=== PATIENT | female | born 1990 | race Caucasian/White ===

== ENCOUNTER 2016-08-24 12:42 | Emergency (ER) | payer OTHER ==
[2016-08-24 12:52] VITALS: BP 119/73; PULSE 66; RESP 17; TEMP 97.7
--- NOTE | 2016-08-24 13:25 | ED ---
Lower Extremity Injury HPI - General Source: patient, RN notes reviewed Mode of arrival: wheelchair Limitations: no limitations <Lali Ortiz - Last Filed: 08/24/16 13:23> <Kumar Faustin - Last Filed: 08/24/16 14:37> - General Chief Complaint: Extremity Injury, Lower Stated Complaint: lt knee/foot injury Time Seen by Provider: 08/24/16 13:08 - History of Present Illness Initial Comments: Patient is a 25-year-old female presents to the emergency room for evaluation of left knee and ankle pain. Patient states that she fell yesterday landing on her left knee and ankle. Patient states been having increasing pain today. Patient states took Tylenol last night and has been applying ice with no relief of pain. Patient states pain has been worse whenever she tries to put weight on her left leg. Patient states she still able to flex and extend her knee and flex and extend her ankle. Patient denies any numbness or tingling in her toes. Patient denies any other injuries during incident. (Lali Ortiz) - Related Data Home Medications Medication Instructions Recorded Confirmed Acetaminophen Tab [Tylenol Tab] 1,000 mg PO Q6HR PRN 08/24/16 08/24/16 DULoxetine HCL [Cymbalta] 30 mg PO DAILY 08/24/16 08/24/16 Naproxen 500 mg PO Q12H PRN 08/24/16 08/24/16 tiZANidine HCL [Zanaflex] 4 mg PO DAILY PRN 08/24/16 08/24/16 Allergies Allergy/AdvReac Type Severity Reaction Status Date / Time No Known Allergies Allergy Verified 08/24/16 13:32 Review of Systems ROS Other: All systems not noted in ROS Statement are negative. <Lali Ortiz - Last Filed: 08/24/16 13:23> ROS Other: All systems not noted in ROS Statement are negative. <Kumar Faustin - Last Filed: 08/24/16 14:37> ROS Statement: Those systems with pertinent positive or pertinent negative responses have been documented in the HPI. Past Medical History Past Medical History: No Reported History History of Any Multi-Drug Resistant Organisms: None Reported Past Surgical History: Section Additional Past Surgical History / Comment(s): ORAL Past Psychological History: Bipolar, Depression Smoking Status: Light tobacco smoker Past Alcohol Use History: None Reported Past Drug Use History: None Reported <Lali Ortiz - Last Filed: 08/24/16 13:23> General Exam Limitations: no limitations General appearance: alert, in no apparent distress Head exam: Present: atraumatic, normocephalic, normal inspection Eye exam: Present: normal appearance ENT exam: Present: normal exam Neck exam: Present: normal inspection Respiratory exam: Absent: respiratory distress Left Knee exam: Present: full ROM, tenderness (Anterior patella), ecchymosis ( Anterior patella) Ankle exam: Present: normal inspection, full ROM, tenderness (Medial malleolus) Foot/Toe exam: Present: normal inspection Neurovascular tendon exam: Present: no vascular compromise. Absent: pulse deficit (2+ dorsal pedal pulses the pulses), abnormal cap refill (Capillary refill less than 2 seconds) Back exam: Present: normal inspection Neurological exam: Present: alert, oriented X3, CN II-XII intact Psychiatric exam: Present: normal affect, normal mood Skin exam: Present: warm, dry, intact, normal color. Absent: rash <Lali Ortiz - Last Filed: 08/24/16 13:23> <Kumar Faustin - Last Filed: 08/24/16 14:37> - General Exam Comments Initial Comments: Sitting in exam room in no acute distress. (Lali Ortiz) Medical Decision Making <Lali Ortiz - Last Filed: 08/24/16 13:23> <Kumar Faustin - Last Filed: 08/24/16 14:37> - Medical Decision Making X-rays of the knee and ankle are negative for any acute fracture. Patient will be placed in a knee immobilizer and have an Jonathan wrap placed on her ankle. (Kumar Faustin) Disposition <Lali Ortiz - Last Filed: 08/24/16 13:23> Time of Disposition: 14:37 <Kumar Faustin - Last Filed: 08/24/16 14:37> Clinical Impression: Knee strain, Ankle sprain Disposition: HOME SELF-CARE Condition: Good Instructions: Ankle Sprain (ED), Knee Sprain (ED) Referrals: Pineda Callahan MD [Primary Care Provider] - 1-2 days
--- NOTE | 2016-08-24 13:54 | XR ---
EXAMINATION TYPE: XR knee complete LT DATE OF EXAM: 08/24/2016 1:49 PM CLINICAL HISTORY: Slip and fall injury with pain. TECHNIQUE: Three views of the left knee are obtained. COMPARISON: None. FINDINGS: There is no acute fracture/dislocation evident in left knee. The tri-compartment joint sp aces appear within normal limits. The overlying soft tissue appears unremarkable. IMPRESSION: There is no acute fracture or dislocation in the left knee.
--- NOTE | 2016-08-24 13:55 | XR ---
EXAMINATION TYPE: XR ankle complete LT DATE OF EXAM: 08/24/2016 1:49 PM CLINICAL HISTORY: Slip and fall injury with lateral side pain. TECHNIQUE: Frontal, lateral and oblique images of the left ankle are obtained. COMPARISON: None. FINDINGS: There is no acute fracture/dislocation evident in the left ankle. The ankle mortise appea rs within normal limits. The overlying soft tissue appears unremarkable. IMPRESSION: There is no acute fracture or dislocation in the left ankle.
== END 2016-08-24 14:46 | disposition home or self-care (01) ==
LOC: EC 12:42
DX: S83.92XA Sprain of unspecified site of left knee, initial encounter (principal); S93.402A Sprain of unspecified ligament of left ankle, initial encounter; W19.XXXA Unspecified fall, initial encounter; Z79.899 Other long term (current) drug therapy; F32.9 Major depressive disorder, single episode, unspecified; F17.200 Nicotine dependence, unspecified, uncomplicated
CPT/HCPCS: 73562; 73610; 99283; L1830

== ENCOUNTER 2016-10-05 13:00 | Emergency (ER) | payer OTHER ==
--- NOTE | 2016-10-05 13:35 | ED ---
General Adult HPI - General Chief complaint: Abdominal Pain Stated complaint: abdominal pain Time Seen by Provider: 10/05/16 13:24 Source: patient, RN notes reviewed, old records reviewed Mode of arrival: ambulatory Limitations: no limitations - History of Present Illness Initial comments: This is a 26-year-old female VF reversion of right flank pain, patient has no history of similar symptoms. Patient does have history of positive , . Patient having no abdominal pain. No nausea vomiting or diarrhea. No recent fevers. No dysuria the patient is noted. Patient's continuing to have left-sided flank pain rating to and around the neck. No diarrhea no nausea vomiting no fevers. - Related Data Home Medications Medication Instructions Recorded Confirmed DULoxetine HCL [Cymbalta] 30 mg PO DAILY 08/24/16 10/05/16 tiZANidine HCL [Zanaflex] 4 mg PO DAILY PRN 08/24/16 10/05/16 Naproxen [Naprosyn] 500 mg PO DAILY PRN 10/05/16 10/05/16 Allergies Allergy/AdvReac Type Severity Reaction Status Date / Time No Known Allergies Allergy Verified 10/05/16 13:44 Review of Systems ROS Statement: Those systems with pertinent positive or pertinent negative responses have been documented in the HPI. ROS Other: All systems not noted in ROS Statement are negative. Past Medical History Past Medical History: No Reported History History of Any Multi-Drug Resistant Organisms: None Reported Past Surgical History: Section Additional Past Surgical History / Comment(s): ORAL Past Psychological History: Anxiety, Bipolar, Depression Smoking Status: Former smoker Past Alcohol Use History: None Reported Past Drug Use History: None Reported General Exam Limitations: no limitations General appearance: alert, in no apparent distress Head exam: Present: atraumatic, normocephalic, normal inspection Eye exam: Present: normal appearance, PERRL, EOMI. Absent: scleral icterus, conjunctival injection, periorbital swelling ENT exam: Present: normal exam, mucous membranes moist Neck exam: Present: normal inspection. Absent: tenderness, meningismus, lymphadenopathy Respiratory exam: Present: normal lung sounds bilaterally. Absent: respiratory distress, wheezes, rales, rhonchi, stridor Cardiovascular Exam: Present: regular rate, normal rhythm, normal heart sounds. Absent: systolic murmur, diastolic murmur, rubs, gallop, clicks GI/Abdominal exam: Present: soft, normal bowel sounds. Absent: distended, tenderness, guarding, rebound, rigid Extremities exam: Present: normal inspection, full ROM, normal capillary refill. Absent: tenderness, pedal edema, joint swelling, calf tenderness Back exam: Present: normal inspection Neurological exam: Present: alert, oriented X3, CN II-XII intact Psychiatric exam: Present: normal affect, normal mood Skin exam: Present: warm, dry, intact, normal color. Absent: rash Course Vital Signs 10/05/16 13:12 Temperature 98.8 F Pulse Rate 94 Respiratory 20 Rate Blood Pressure 123/72 O2 Sat by Pulse 98 Oximetry - Reevaluation(s) Reevaluation #1: 10/05/16 15:38 Pain is remarkable resolved Medical Decision Making - Medical Decision Making 26-year-old year with nonspecific abdominal pain, lab work and CT is negative, urine is negative patient will be discharged home - Lab Data Result diagrams: 10/05/16 15:07 10/05/16 15:07 Lab Results 10/05/16 10/05/16 10/05/16 Range/Units 13:41 13:41 15:07 WBC (3.8-10.6) k/uL RBC (3.80-5.40) m/uL Hgb (11.4-16.0) gm/dL Hct (34.0-46.0) % MCV (80.0-100.0) fL MCH (25.0-35.0) pg MCHC (31.0-37.0) g/dL RDW (11.5-15.5) % Plt Count (150-450) k/uL Neutrophils % % Lymphocytes % % Monocytes % % Eosinophils % % Basophils % % Neutrophils # (1.3-7.7) k/uL Lymphocytes # (1.0-4.8) k/uL Monocytes # (0-1.0) k/uL Eosinophils # (0-0.7) k/uL Basophils # (0-0.2) k/uL Sodium 143 (137-145) mmol/L Potassium 3.8 (3.5-5.1) mmol/L Chloride 106 (98-107) mmol/L Carbon Dioxide 26 (22-30) mmol/L Anion Gap 11 mmol/L BUN 6 L (7-17) mg/dL Creatinine 0.66 (0.52-1.04) mg/dL Est GFR (MDRD) Af Amer >60 (>60 ml/min/1.73 sqM) Est GFR (MDRD) Non-Af >60 (>60 ml/min/1.73 sqM) Glucose 90 (74-99) mg/dL Calcium 9.6 (8.4-10.2) mg/dL Total Bilirubin 0.5 (0.2-1.3) mg/dL AST 16 (14-36) U/L ALT 22 (9-52) U/L Alkaline Phosphatase 87 (38-126) U/L Total Protein 7.3 (6.3-8.2) g/dL Albumin 4.1 (3.5-5.0) g/dL Amylase 39 (30-110) U/L Lipase 29 (23-300) U/L Urine Color Light Yellow Urine Appearance Clear (Clear) Urine pH 7.0 (5.0-8.0) Ur Specific Sentinel 1.012 (1.001-1.035) Urine Protein Negative (Negative) Urine Glucose (UA) Negative (Negative) Urine Ketones Negative (Negative) Urine Blood Negative (Negative) Urine Nitrite Negative (Negative) Urine Bilirubin Negative (Negative) Urine Urobilinogen <2.0 (<2.0) mg/dL Ur Leukocyte Esterase Negative (Negative) Urine HCG, Qual Not Detected (Not Detectd) 10/05/16 Range/Units 15:07 WBC 7.8 (3.8-10.6) k/uL RBC 4.80 (3.80-5.40) m/uL Hgb 12.0 (11.4-16.0) gm/dL Hct 38.0 (34.0-46.0) % MCV 79.1 L (80.0-100.0) fL MCH 24.9 L (25.0-35.0) pg MCHC 31.5 (31.0-37.0) g/dL RDW 14.1 (11.5-15.5) % Plt Count 275 (150-450) k/uL Neutrophils % 70 % Lymphocytes % 21 % Monocytes % 5 % Eosinophils % 1 % Basophils % 0 % Neutrophils # 5.5 (1.3-7.7) k/uL Lymphocytes # 1.7 (1.0-4.8) k/uL Monocytes # 0.4 (0-1.0) k/uL Eosinophils # 0.1 (0-0.7) k/uL Basophils # 0.0 (0-0.2) k/uL Sodium (137-145) mmol/L Potassium (3.5-5.1) mmol/L Chloride (98-107) mmol/L Carbon Dioxide (22-30) mmol/L Anion Gap mmol/L BUN (7-17) mg/dL Creatinine (0.52-1.04) mg/dL Est GFR (MDRD) Af Amer (>60 ml/min/1.73 sqM) Est GFR (MDRD) Non-Af (>60 ml/min/1.73 sqM) Glucose (74-99) mg/dL Calcium (8.4-10.2) mg/dL Total Bilirubin (0.2-1.3) mg/dL AST (14-36) U/L ALT (9-52) U/L Alkaline Phosphatase (38-126) U/L Total Protein (6.3-8.2) g/dL Albumin (3.5-5.0) g/dL Amylase (30-110) U/L Lipase (23-300) U/L Urine Color Urine Appearance (Clear) Urine pH (5.0-8.0) Ur Specific Sentinel (1.001-1.035) Urine Protein (Negative) Urine Glucose (UA) (Negative) Urine Ketones (Negative) Urine Blood (Negative) Urine Nitrite (Negative) Urine Bilirubin (Negative) Urine Urobilinogen (<2.0) mg/dL Ur Leukocyte Esterase (Negative) Urine HCG, Qual (Not Detectd) - Radiology Data Radiology results: report reviewed (CT of abdominal and pelvis is negative for acute disease), image reviewed Disposition Clinical Impression: Abdominal pain, Left flank pain Disposition: HOME SELF-CARE Condition: Good Instructions: Abdominal Pain (ED), Flank Pain (ED) Referrals: Pineda Callahan MD [Primary Care Provider] - 1-2 days
[2016-10-05 14:03] LABS: Appearance,Urine Clear (Clear); Bilirubin,Urine Negative (Negative); Glucose,Urine (UA) Negative (Negative); Ketones,Urine Negative (Negative); Leukocyte Esterase,Urine Negative (Negative); Nitrite,Urine Negative (Negative); Protein,Urine Negative (Negative); Specific Gravity,Urine 1.012 (1.001-1.035); UA Billing (MACRO vs. MICRO) CHEM; Urobilinogen,Urine <2.0 mg/dL (<2.0)
[2016-10-05] MEDS ORDERED: RX INFO: IV CONTRAST WAS GIVEN 1 EACH MISC MISCELLANE PRN (14:33)
[2016-10-05] MEDS ORDERED: MORPHINE SULFATE 4 MG/ML SYRINGE IV STA (14:33)
[2016-10-05] MEDS ORDERED: ONDANSETRON 4 MG/2 ML VIAL IVP STA (14:33)
[2016-10-05] MEDS ORDERED: SODIUM CHLORIDE 0.9% 1,000 ML IV STA (14:33)
[2016-10-05] MEDS ORDERED: PANTOPRAZOLE 40 MG/10 ML VIAL IVP STA (14:33)
[2016-10-05 15:25] LABS: ALT 22 U/L (9-52); AST 16 U/L (14-36); Alkaline Phosphatase 87 U/L (38-126); Amylase 39 U/L (30-110); Anion Gap 11 mmol/L; Basophils % (A) 0 %; Blood Urea Nitrogen 6 mg/dL (7-17); CH 24.9; CHCM 31.6; Calcium 9.6 mg/dL (8.4-10.2); Carbon Dioxide 26 mmol/L (22-30); Chloride 106 mmol/L (98-107); Eosinophils # (A) 0.1 k/uL (0-0.7); Eosinophils % (A) 1 %; Glucose 90 mg/dL (74-99); HDW 2.42; Luc # (Auto) 0.18; Luc % (Auto) 2; Lymphocytes # (A) 1.7 k/uL (1.0-4.8); Lymphocytes % (A) 21 %; MCH 24.9 pg (25.0-35.0); MCHC 31.5 g/dL (31.0-37.0); MCV 79.1 fL (80.0-100.0); Mean Platelet Volume 7.2; Monocytes # (A) 0.4 k/uL (0-1.0); Monocytes % (A) 5 %; Neutrophils # (A) 5.5 k/uL (1.3-7.7); Neutrophils % (A) 70 %; Non-African American GFR(MDRD) >60 (>60 ml/min/1.73 sqM); Potassium 3.8 mmol/L (3.5-5.1); RDW 14.1 % (11.5-15.5); Sodium 143 mmol/L (137-145); Total Bilirubin 0.5 mg/dL (0.2-1.3); Total Protein 7.3 g/dL (6.3-8.2); WBC 7.8 k/uL (3.8-10.6); WBC (Perox) 8.32
--- NOTE | 2016-10-05 15:46 | CT ---
EXAMINATION TYPE: CT abdomen pelvis w con DATE OF EXAM: 10/05/2016 3:33 PM COMPARISON: Ultrasound abdomen June HISTORY: Right flank pain. CT DLP: 845.70 mGycm Automated exposure control for dose reduction was used. TECHNIQUE: Helical acquisition of images was performed from the lung bases through the pelvis. CONTRAST: Performed without Oral Contrast and with IV Contrast, patient injected with 100 mL of Omnipaque 300. FINDINGS: LUNG BASES: Dependent atelectatic changes are present, there is no pleural or pericardial effusion LIVER/GB: The liver shows low attenuation and is enlarged likely due to fatty infiltration, gallbladd er is normal PANCREAS: No significant abnormality is seen. SPLEEN: Small peripheral focus of low-attenuation posteriorly measures only 5 mm and is of questionab le clinical significance, there may be a small cyst or hemangioma ADRENALS: No significant abnormality is seen. KIDNEYS: No significant abnormality is seen. RETROPERITONEAL ADENOPATHY: None visualized REPRODUCTIVE ORGANS: An involuting follicle is thought present in the right ovary measuring 17 mm, ri ng enhancement is present with central low-attenuation. URINARY BLADDER: No significant abnormality is seen. PELVIC ADENOPATHY: None visualized. OSSEOUS STRUCTURES: No significant abnormality is seen. BOWEL: There are some fluid-filled loops of small bowel present. No evident appendicitis. OTHER: There is no ascites. IMPRESSION: NONSPECIFIC FINDINGS ABOVE, CORRELATE TO EXCLUDE ENTERITIS. INVOLUTING RIGHT OVARIAN FOLLICLE.
[2016-10-05 16:16] VITALS: BP 124/83; PULSE 76; RESP 16; TEMP 98.4
== END 2016-10-05 16:16 | disposition home or self-care (01) ==
LOC: EC 13:00
DX: R10.9 Unspecified abdominal pain (principal); Z32.02 Encounter for pregnancy test, result negative; F31.9 Bipolar disorder, unspecified; F41.9 Anxiety disorder, unspecified; Z87.891 Personal history of nicotine dependence; Z79.899 Other long term (current) drug therapy
CPT/HCPCS: 36415; 80053; 82150; 83690; 85025; 81003; 81025; 87086; 74177; 99284; 96374; 96375 ×2; 96361; J2270; J2405; Q9967; C9113

== ENCOUNTER 2016-11-15 02:36 | Emergency (ER) | payer OTHER ==
[2016-11-15 02:44] VITALS: BP 124/75; PULSE 85; RESP 20; TEMP 99
[2016-11-15] MEDS ORDERED: BENZONATATE 100 MG CAP PO STA (02:54)
--- NOTE | 2016-11-15 03:05 | ED ---
General Adult HPI - General Chief complaint: Upper Respiratory Infection Stated complaint: Cough,chest pain Time Seen by Provider: 11/15/16 02:51 Source: patient, RN notes reviewed Mode of arrival: ambulatory Limitations: no limitations - History of Present Illness Initial comments: 26 yo female presents to the ER with cc of cough. Patient states she has this cough times 1 week. Patient denies any sputum production with this. Patient states she does not have any shortness of breath. patient denies any fever at home. patient states she tried some robutussin with no improvement. Patient states she was concerned due to the continued cough so she thought she should be seen. Patient states she is not currently having any other symptoms at this time. Patient denies nausea or vomiting, fever or chills, back pain, abdominal pain, changes in urination, numbness or tingling. - Related Data Home Medications Medication Instructions Recorded Confirmed HYDROcodone/APAP 5-325MG [[place] 1 tab PO BID PRN 10/06/16 11/15/16 5-325] Ibuprofen [Motrin] 800 mg PO Q8H PRN 10/06/16 11/15/16 buPROPion [Wellbutrin] 75 mg PO BID 11/15/16 11/15/16 Previous Rx's Medication Instructions Recorded Benzonatate [Tessalon Perles] 100 mg PO TID #20 cap 11/15/16 Pseudoephedrine HCl [Sudafed 240 mg PO DAILY #10 tab.er.24h 11/15/16 24-Hour] predniSONE 50 mg PO DAILY #5 tab 11/15/16 Allergies Allergy/AdvReac Type Severity Reaction Status Date / Time No Known Allergies Allergy Verified 11/15/16 02:43 Review of Systems ROS Statement: Those systems with pertinent positive or pertinent negative responses have been documented in the HPI. ROS Other: All systems not noted in ROS Statement are negative. Past Medical History Past Medical History: GERD/Reflux Additional Past Medical History / Comment(s): Chronic low back pain. History of Any Multi-Drug Resistant Organisms: None Reported Past Surgical History: Section Additional Past Surgical History / Comment(s): ORAL Additional Past Anesthesia/Blood Transfusion Reaction / Comment(s): Pt has never had general anesthesia. Past Psychological History: Anxiety, Bipolar, Depression Additional Psychological History / Comment(s): Pt states she has been more depressed lately but no thoughts of harming herself. She lives at home with her spouse, 5 yrs old child and father- in -law. She is independent. Smoking Status: Former smoker Past Alcohol Use History: Occasional Additional Past Alcohol Use History / Comment(s): Pt started smoking as a teen and quit in 2010. Past Drug Use History: None Reported - Past Family History Mother Family Medical History: Thyroid Disorder Additional Family Medical History / Comment(s): Mother has thyroid dx. Father History Unknown: Yes General Exam Limitations: no limitations General appearance: alert, in no apparent distress Head exam: Present: atraumatic, normocephalic, normal inspection Eye exam: Present: normal appearance, PERRL, EOMI. Absent: scleral icterus, conjunctival injection, periorbital swelling ENT exam: Present: normal exam, normal oropharynx, mucous membranes moist, TM's normal bilaterally, normal external ear exam Neck exam: Present: normal inspection. Absent: tenderness, meningismus, lymphadenopathy Respiratory exam: Present: normal lung sounds bilaterally. Absent: respiratory distress, wheezes, rales, rhonchi, stridor Cardiovascular Exam: Present: regular rate, normal rhythm, normal heart sounds. Absent: systolic murmur, diastolic murmur, rubs, gallop, clicks Neurological exam: Present: alert, oriented X3 Psychiatric exam: Present: normal affect, normal mood Skin exam: Present: warm, dry, intact, normal color. Absent: rash Course Vital Signs 11/15/16 02:39 Temperature 99 F Pulse Rate 85 Respiratory 20 Rate Blood Pressure 124/75 O2 Sat by Pulse 97 Oximetry Medical Decision Making - Medical Decision Making 26 yo female presents to the ER with cc of cough. At this time xray shows no acute process. We discussed patient most likely has an upper respiratory infection caused by a virus at this time. We will start the patient on steroids and tesalon perles as well as sudafed. We discussed return parameters and close follow up. Patient is in agreement with the plan and all questions have been answered. At this time the patient will be discharged home. Disposition Clinical Impression: Upper respiratory infection, Viral infection Disposition: HOME SELF-CARE Condition: Stable Instructions: Upper Respiratory Infection (ED) Additional Instructions: Please use medications as prescribed. Return to the ER with any changing or worsening symptoms. Prescriptions: Benzonatate [Tessalon Perles] 100 mg PO TID #20 cap Pseudoephedrine HCl [Sudafed 24-Hour] 240 mg PO DAILY #10 tab.er.24h predniSONE 50 mg PO DAILY #5 tab Referrals: Pineda Callahan MD [Primary Care Provider] - 1-2 days Time of Disposition: 03:14
--- NOTE | 2016-11-15 03:11 | XR ---
EXAM: XR Chest, 2 Views CLINICAL HISTORY: Reason: cough TECHNIQUE: Frontal and lateral views of the chest. COMPARISON: No relevant prior studies available. FINDINGS: Lungs: Mild bibasilar lung atelectasis. No focal infiltrate or consolidation. Pleural space: Unremarkable. No pneumothorax. Heart: Unremarkable. No cardiomegaly. Mediastinum: Unremarkable. Bones/joints: Unremarkable. IMPRESSION: No acute findings.
== END 2016-11-15 03:20 | disposition home or self-care (01) ==
LOC: EC 02:36
DX: J06.9 Acute upper respiratory infection, unspecified (principal); F31.9 Bipolar disorder, unspecified; F41.9 Anxiety disorder, unspecified; Z87.891 Personal history of nicotine dependence; Z79.899 Other long term (current) drug therapy
CPT/HCPCS: 71020; 99283

== ENCOUNTER → 2017-01-08 | Outpatient (CLI) | payer OTHER ==
--- NOTE | 2017-01-08 14:37 | MR ---
EXAMINATION TYPE: MR knee LT wo con DATE OF EXAM: 01/08/2017 2:17 PM COMPARISON: NONE HISTORY: Left knee pain TECHNIQUE: Multiplanar, multiecho imaging of the left knee is performed without IV contrast. FINDINGS: There is only a small amount of joint fluid. There is no significant chondromalacia. There are 2 adjacent well-defined lesions in the distal metaphysis of the femur posteriorly. One ruth ures 7.3 mm the other measures 3.2 mm. These are high in signal on T2 and low in signal on T1. These can represent small enchondromas or simple bone cyst. There are not visible on the accompanying radio graphs from 08/24/2016. There is no evidence of bony expansion. 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 There is a split tear involving the entire body and most of the posterior horn and anterior horn of the lateral meniscus. This communicates with the apex of the meni scus. The medial meniscus is unremarkable. Both the anterior and the posterior cruciate ligaments are intact. Both the medial and lateral collateral ligament complexes are intact. Iliotibial band inserts normall y upon Gerdy's tubercle. The popliteus muscle and tendon are normal. There is a small amount of fluid in the proximal tibiofibular articulation. Both the quadriceps and patellar tendons are intact. There is no significant swelling in the Hoffa fa t space. IMPRESSION: 1. LARGE UNDISPLACED SPLIT TEAR INVOLVING MUCH OF THE THE ANTERIOR HORN, BODY AND POSTERIOR HORN OF T HE LATERAL MENISCUS COMMUNICATING WITH THE APEX OF THE MENISCUS. 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 2. 2 SMALL ADJACENT LESIONS IN THE POSTERIOR METAPHYSIS OF THE DISTAL FEMUR. THESE ARE NONSPECIFIC. E NCHONDROMA VERSUS BONE CYST WOULD NEED TO BE CONSIDERED.
== END | disposition home or self-care (01) ==
LOC: RADMRIMAIN 13:40
PROVIDERS: ATTEND Orthopaedic Surgery
DX: S83.242A Other tear of medial meniscus, current injury, left knee, initial encounter (principal); S83.282A Other tear of lateral meniscus, current injury, left knee, initial encounter; M89.8X5 Other specified disorders of bone, thigh

== ENCOUNTER 2018-01-15 17:21 | Emergency (ER) | payer OTHER ==
[2018-01-15] MEDS ORDERED: ONDANSETRON 4 MG/2 ML VIAL IVP STA (17:54)
[2018-01-15] MEDS ORDERED: SODIUM CHLORIDE 0.9% 1,000 ML IV STA (17:54)
[2018-01-15] MEDS ORDERED: KETOROLAC 30 MG/ML 1 ML VIAL IVP STA (17:54)
--- NOTE | 2018-01-15 18:05 | ED ---
Back Pain HPI - General Chief Complaint: Back Pain/Injury Stated Complaint: Back Pain Time Seen by Provider: 01/15/18 17:34 Source: patient Limitations: no limitations - History of Present Illness Initial Comments: 27-year-old female patient presents to the emergency department today for evaluation of upper back pain that radiates into her chest. Patient states that it started just before 5 PM when she was trying to eat. Patient states that feels like her chest is tight. Patient states that she did have one vomiting episode today. Patient does have history of chronic low back and did try taking a Brainerd however was not able to keep it down. She has had intermittent abdominal pain over the last several months, but never this bad. Patient states she is still nauseated. She denies any fevers or chills. Denies any constipation, diarrhea, hematuria, dysuria, urinary frequency, urinary urgency. Patient has had to her abdomen, this is her only surgery. She denies any chance of . Denies any abnormal vaginal bleeding or discharge. Patient denies any recent rash, numbness, tingling, dizziness, weakness, headache, visual changes, or any other complaints. - Related Data Home Medications Medication Instructions Recorded Confirmed HYDROcodone/APAP 5-325MG [Brainerd 1 tab PO BID PRN 10/06/16 11/15/16 5-325] Ibuprofen [Motrin] 800 mg PO Q8H PRN 10/06/16 11/15/16 buPROPion [Wellbutrin] 75 mg PO BID 11/15/16 11/15/16 Previous Rx's Medication Instructions Recorded Benzonatate [Tessalon Perles] 100 mg PO TID #20 cap 11/15/16 Pseudoephedrine HCl [Sudafed 240 mg PO DAILY #10 tab.er.24h 11/15/16 24-Hour] predniSONE 50 mg PO DAILY #5 tab 11/15/16 Ondansetron [Zofran ODT] 4 mg PO Q8HR PRN #10 tab 01/15/18 Allergies Allergy/AdvReac Type Severity Reaction Status Date / Time No Known Allergies Allergy Verified 01/15/18 17:30 Review of Systems ROS Statement: Those systems with pertinent positive or pertinent negative responses have been documented in the HPI. ROS Other: All systems not noted in ROS Statement are negative. Past Medical History Past Medical History: GERD/Reflux Additional Past Medical History / Comment(s): Chronic low back pain. History of Any Multi-Drug Resistant Organisms: None Reported Past Surgical History: Section Additional Past Surgical History / Comment(s): ORAL Additional Past Anesthesia/Blood Transfusion Reaction / Comment(s): Pt has never had general anesthesia. Past Psychological History: Anxiety, Bipolar, Depression Smoking Status: Former smoker Past Alcohol Use History: Occasional Past Drug Use History: None Reported - Past Family History Mother Family Medical History: Thyroid Disorder Additional Family Medical History / Comment(s): Mother has thyroid dx. Father History Unknown: Yes General Exam Limitations: no limitations General appearance: alert, in no apparent distress, other (This is a well- developed, well-nourished adult female patient in no acute distress. Vital signs upon presentation are temperature 98.4F, pulse 72, respirations 20, blood pressure 120/77, pulse ox 99% on room air.) Eye exam: Present: normal appearance, PERRL, EOMI. Absent: scleral icterus, conjunctival injection, periorbital swelling ENT exam: Present: normal exam, normal oropharynx, mucous membranes moist Respiratory exam: Present: normal lung sounds bilaterally. Absent: respiratory distress, wheezes, rales, rhonchi, stridor, chest wall tenderness Cardiovascular Exam: Present: regular rate, normal rhythm, normal heart sounds. Absent: systolic murmur, diastolic murmur, rubs, gallop, clicks GI/Abdominal exam: Present: soft, tenderness (Mild right upper quadrant tenderness), normal bowel sounds. Absent: distended, guarding, rebound, rigid Back exam: Present: normal inspection. Absent: vertebral tenderness Neurological exam: Present: alert, oriented X3, CN II-XII intact Psychiatric exam: Present: normal affect, normal mood Skin exam: Present: warm, dry, intact, normal color. Absent: rash Course Vital Signs 01/15/18 01/15/18 01/15/18 17:29 19:17 20:15 Temperature 98.4 F Pulse Rate 72 64 64 Respiratory 20 18 19 Rate Blood Pressure 120/77 113/71 106/57 O2 Sat by Pulse 99 99 99 Oximetry 01/15/18 20:16 Temperature 98.7 F Pulse Rate Respiratory 19 Rate Blood Pressure O2 Sat by Pulse Oximetry Medical Decision Making - Medical Decision Making 27-year-old female patient presented to the emergency department today for evaluation of chest and back pain. Physical examination is relatively unremarkable. Abdomen soft and only mildly tender over the right upper quadrant. Lungs are clear to auscultation with good air movement. There is no chest wall tenderness. Labs reviewed and are unremarkable. Chest x-ray showed no acute cardiopulmonary process. EKG showed sinus rhythm with a rate of 57. I did discuss results and findings with the patient. I did discuss possible gallbladder dysfunction and recommended she follow up with her primary care physician for a HIDA scan or ultrasound. She is instructed to take her home pain medication Brainerd. She'll be given a prescription for Zofran. Return parameters discussed in detail. She verbalizes understanding and agrees with this plan. - Lab Data Result diagrams: 01/15/18 18:00 01/15/18 18:00 Lab Results 01/15/18 01/15/18 01/15/18 Range/Units 18:00 18:00 18:00 WBC 9.9 (3.8-10.6) k/uL RBC 4.58 (3.80-5.40) m/uL Hgb 11.6 (11.4-16.0) gm/dL Hct 34.7 (34.0-46.0) % MCV 75.7 L (80.0-100.0) fL MCH 25.2 (25.0-35.0) pg MCHC 33.3 (31.0-37.0) g/dL RDW 13.9 (11.5-15.5) % Plt Count 319 (150-450) k/uL Neutrophils % 72 % Lymphocytes % 21 % Monocytes % 5 % Eosinophils % 1 % Basophils % 0 % Neutrophils # 7.1 (1.3-7.7) k/uL Lymphocytes # 2.0 (1.0-4.8) k/uL Monocytes # 0.5 (0-1.0) k/uL Eosinophils # 0.1 (0-0.7) k/uL Basophils # 0.0 (0-0.2) k/uL Microcytosis Slight Sodium 142 (137-145) mmol/L Potassium 3.5 (3.5-5.1) mmol/L Chloride 108 H (98-107) mmol/L Carbon Dioxide 23 (22-30) mmol/L Anion Gap 11 mmol/L BUN 8 (7-17) mg/dL Creatinine 0.73 (0.52-1.04) mg/dL Est GFR (CKD-EPI)AfAm >90 (>60 ml/min/1.73 sqM) Est GFR (CKD-EPI)NonAf >90 (>60 ml/min/1.73 sqM) Glucose 85 (74-99) mg/dL Calcium 9.6 (8.4-10.2) mg/dL Total Bilirubin 0.4 (0.2-1.3) mg/dL AST 16 (14-36) U/L ALT 26 (9-52) U/L Alkaline Phosphatase 93 (38-126) U/L Total Creatine Kinase (30-135) U/L CK-MB (CK-2) (0.0-2.4) ng/mL CK-MB (CK-2) Rel Index Troponin I (0.000-0.034) ng/mL Total Protein 7.0 (6.3-8.2) g/dL Albumin 4.1 (3.5-5.0) g/dL Amylase 33 (30-110) U/L Lipase 28 (23-300) U/L Urine Color Yellow Urine Appearance Cloudy H (Clear) Urine pH 6.0 (5.0-8.0) Ur Specific [place] 1.011 (1.001-1.035) Urine Protein Negative (Negative) Urine Glucose (UA) Negative (Negative) Urine Ketones Negative (Negative) Urine Blood Moderate H (Negative) Urine Nitrite Negative (Negative) Urine Bilirubin Negative (Negative) Urine Urobilinogen <2.0 (<2.0) mg/dL Ur Leukocyte Esterase Negative (Negative) Urine RBC 1 (0-5) /hpf Urine WBC 3 (0-5) /hpf Ur Squamous Epith Cells 3 (0-4) /hpf Urine Bacteria Occasional H (None) /hpf Urine Mucus Many H (None) /hpf Urine HCG, Qual (Not Detectd) 01/15/18 01/15/18 Range/Units 18:00 18:00 WBC (3.8-10.6) k/uL RBC (3.80-5.40) m/uL Hgb (11.4-16.0) gm/dL Hct (34.0-46.0) % MCV (80.0-100.0) fL MCH (25.0-35.0) pg MCHC (31.0-37.0) g/dL RDW (11.5-15.5) % Plt Count (150-450) k/uL Neutrophils % % Lymphocytes % % Monocytes % % Eosinophils % % Basophils % % Neutrophils # (1.3-7.7) k/uL Lymphocytes # (1.0-4.8) k/uL Monocytes # (0-1.0) k/uL Eosinophils # (0-0.7) k/uL Basophils # (0-0.2) k/uL Microcytosis Sodium (137-145) mmol/L Potassium (3.5-5.1) mmol/L Chloride (98-107) mmol/L Carbon Dioxide (22-30) mmol/L Anion Gap mmol/L BUN (7-17) mg/dL Creatinine (0.52-1.04) mg/dL Est GFR (CKD-EPI)AfAm (>60 ml/min/1.73 sqM) Est GFR (CKD-EPI)NonAf (>60 ml/min/1.73 sqM) Glucose (74-99) mg/dL Calcium (8.4-10.2) mg/dL Total Bilirubin (0.2-1.3) mg/dL AST (14-36) U/L ALT (9-52) U/L Alkaline Phosphatase (38-126) U/L Total Creatine Kinase 79 (30-135) U/L CK-MB (CK-2) <0.2 (0.0-2.4) ng/mL CK-MB (CK-2) Rel Index Troponin I <0.012 (0.000-0.034) ng/mL Total Protein (6.3-8.2) g/dL Albumin (3.5-5.0) g/dL Amylase (30-110) U/L Lipase (23-300) U/L Urine Color Urine Appearance (Clear) Urine pH (5.0-8.0) Ur Specific [place] (1.001-1.035) Urine Protein (Negative) Urine Glucose (UA) (Negative) Urine Ketones (Negative) Urine Blood (Negative) Urine Nitrite (Negative) Urine Bilirubin (Negative) Urine Urobilinogen (<2.0) mg/dL Ur Leukocyte Esterase (Negative) Urine RBC (0-5) /hpf Urine WBC (0-5) /hpf Ur Squamous Epith Cells (0-4) /hpf Urine Bacteria (None) /hpf Urine Mucus (None) /hpf Urine HCG, Qual Not Detected (Not Detectd) - EKG Data -: EKG Interpreted by Me EKG Comments: EKG obtained at 1939 to a sinus bradycardia with a ventricular rate of 57, OR interval 156, QRS duration 96, QT 446, QTc 434. No evidence of ST elevation or depression. - Radiology Data Radiology results: report reviewed, image reviewed Two-view x-ray of the chest was obtained. There is no focal airspace opacity, pleural effusion, or pneumothorax seen. The cardiac silhouette size is within normal limits. The osseous structures are intact. Cardiovascular silhouette is unremarkable. No pleural effusions or pneumothorax. Scapulas are partially obscuring the upper lung roca. Pressure by Dr. Angeles shows no evidence of acute infiltrate or vascular decompensation as described. Disposition Clinical Impression: Chest pain Disposition: HOME SELF-CARE Condition: Good Instructions: Chest Pain (ED), Back Pain (ED) Additional Instructions: Decrease fatty foods in your diet. Follow-up with her primary care physician for recheck as soon as possible. Return here immediately for any new, worsening , or concerning symptoms. Prescriptions: Ondansetron [Zofran ODT] 4 mg PO Q8HR PRN #10 tab PRN Reason: Nausea Is patient prescribed a controlled substance at d/c from ED?: No Referrals: Pineda Callahan MD [Primary Care Provider] - 1-2 days Time of Disposition: 19:45
[2018-01-15 18:30] LABS: Appearance,Urine Cloudy (Clear); Bacteria,Urine Occasional /hpf; Bilirubin,Urine Negative (Negative); Blood,Urine Moderate (Negative); Color,Urine Yellow; Glucose,Urine (UA) Negative (Negative); Ketones,Urine Negative (Negative); Leukocyte Esterase,Urine Negative (Negative); Mucus,Urine Many /hpf; Nitrite,Urine Negative (Negative); Protein,Urine Negative (Negative); RBC,Urine 1 /hpf (0-5); Specific Gravity,Urine 1.011 (1.001-1.035); Squamous Epithelial Cell,Urine 3 /hpf (0-4); Urobilinogen,Urine <2.0 mg/dL (<2.0); WBC,Urine 3 /hpf (0-5)
[2018-01-15 18:32] LABS: Basophils % (A) 0 %; Eosinophils # (A) 0.1 k/uL (0-0.7); Eosinophils % (A) 1 %; HCT 34.7 % (34.0-46.0); HGB 11.6 gm/dL (11.4-16.0); Lymphocytes % (A) 21 %; MCH 25.2 pg (25.0-35.0); MCHC 33.3 g/dL (31.0-37.0); MCV 75.7 fL (80.0-100.0); Mean Platelet Volume 7.2; Microcytosis Slight; Monocytes # (A) 0.5 k/uL (0-1.0); Monocytes % (A) 5 %; Neutrophils # (A) 7.1 k/uL (1.3-7.7); Neutrophils % (A) 72 %; Platelet Count 319 k/uL (150-450); RBC 4.58 m/uL (3.80-5.40); RDW 13.9 % (11.5-15.5); WBC 9.9 k/uL (3.8-10.6)
[2018-01-15 18:42] LABS: ALT 26 U/L (9-52); AST 16 U/L (14-36); Albumin 4.1 g/dL (3.5-5.0); Alkaline Phosphatase 93 U/L (38-126); Amylase 33 U/L (30-110); Anion Gap 11 mmol/L; Blood Urea Nitrogen 8 mg/dL (7-17); Calcium 9.6 mg/dL (8.4-10.2); Carbon Dioxide 23 mmol/L (22-30); Chloride 108 mmol/L (98-107); Glucose 85 mg/dL (74-99); Lipase 28 U/L (23-300); Potassium 3.5 mmol/L (3.5-5.1); Sodium 142 mmol/L (137-145); Total Bilirubin 0.4 mg/dL (0.2-1.3)
[2018-01-15 18:46] LABS: Creatine Kinase 79 U/L (30-135)
[2018-01-15 18:59] LABS: Creatine Kinase MB <0.2 ng/mL (0.0-2.4); Troponin I <0.012 ng/mL (0.000-0.034)
[2018-01-15 19:20] VITALS: PULSE 64
--- NOTE | 2018-01-15 19:33 | XR ---
EXAMINATION TYPE: XR chest 2V DATE OF EXAM: 01/15/2018 COMPARISON: Prior chest x-ray dated 11/15/2016. HISTORY: Back pain radiating to the chest and upper abd omen TECHNIQUE: Frontal and lateral views of the chest are obtained. FINDINGS: There is no focal air space opacity, pleural effusion, or pneumothorax seen. The cardiac silhouette size is within normal limits. The osseous structures are intact. Cardiovascular silhouet te is unremarkable. No pleural effusions or pneumothorax. Scapulas are partially obscuring the upper lung roca. IMPRESSION: No evidence of acute infiltrate or vascular decompensation dilatation as described.
[2018-01-15] MEDS ORDERED: MORPHINE SULFATE 2 MG/ML SYRINGE IVP STA (19:43)
[2018-01-15 20:16] VITALS: BP 106/57; RESP 19
[2018-01-15 20:19] VITALS: TEMP 98.7
== END 2018-01-15 20:16 | disposition home or self-care (01) ==
LOC: EC 17:21
DX: R07.9 Chest pain, unspecified (principal); R00.1 Bradycardia, unspecified; M54.6 Pain in thoracic spine; R10.9 Unspecified abdominal pain; R11.2 Nausea with vomiting, unspecified; F32.9 Major depressive disorder, single episode, unspecified; F41.9 Anxiety disorder, unspecified; Z87.891 Personal history of nicotine dependence; Z79.899 Other long term (current) drug therapy
CPT/HCPCS: 36415; 93005; 80053; 82150; 82550; 82553; 83690; 84484; 85025; 81001; 81025; 71046; 99284; 96374; 96375 ×2; 96361; J2405; J1885; J2270

== ENCOUNTER → 2018-02-01 | Outpatient (CLI) | payer OTHER ==
--- NOTE | 2018-02-01 08:08 | US ---
EXAMINATION TYPE: US gallbladder DATE OF EXAM: 02/01/2018 COMPARISON: 04/12/2016 CLINICAL HISTORY: R10.11 Right upper quadrant pain. Generalized pain, NPO EXAM MEASUREMENTS: Liver Length: 14.7 cm Gallbladder Wall: 0.2 cm CBD: 0.7 cm CHD: 0.4 cm Right Kidney: 9.1 x 4.1 x 3.2 cm Pancreas: Appears echogenic. Tail obscured by overlying bowel gas Liver: wnl Gallbladder: wnl Evidence for sonographic Velazquez's sign: neg CBD: Dilated CHD: wnl Right Kidney: wnl IMPRESSION: 1. Mildly dilated common bile duct of uncertain etiology.
== END | disposition home or self-care (01) ==
LOC: RADUSWWP 06:57
PROVIDERS: ATTEND Family Medicine
DX: R10.11 Right upper quadrant pain (principal); K83.8 Other specified diseases of biliary tract
CPT/HCPCS: 76705

== ENCOUNTER → 2018-02-24 | Outpatient (CLI) | payer OTHER ==
--- NOTE | 2018-02-25 15:19 | NM ---
EXAMINATION TYPE: NM hepatobiliary w EF DATE OF EXAM: 02/24/2018 COMPARISON: NONE INDICATION: Right upper quadrant pain TECHNIQUE: After the intravenous administration of 4.97 mCi Tc 99m Mebrofenin hepatobiliary scintigra phy is performed. Images were obtained immediately post injection. FINDINGS: There is prompt uptake and excretion of radiotracer by the liver. Extrahepatic ducts are identified at 3 minutes. The gallbladder is visualized within 38 minutes. Small bowel activity is noted within 13 minutes. At one hour 8 ounces of oral ensure plus is given to mimic CCK and gallbladder ejection fraction is c alculated at 67 %, which is in the normal range. (Normal >35% and <80%.). IMPRESSION: 1. Normal hepatobiliary scan
== END | disposition home or self-care (01) ==
LOC: RADNMMAIN 14:44
PROVIDERS: ATTEND Family Medicine
DX: R10.11 Right upper quadrant pain (principal)
CPT/HCPCS: 78226; A9537

== ENCOUNTER → 2018-05-08 | Outpatient (CLI) | payer OTHER ==
--- NOTE | 2018-05-08 13:53 | MR ---
EXAMINATION TYPE: MR lumbar spine wo/w con DATE OF EXAM: 05/08/2018 COMPARISON: 10/02/2015 HISTORY: LBP CONTRAST: 7.5 mL intravenous Gadavist. TECHNIQUE: Multiplanar, multisequence images of the lumbar spine were acquired. FINDINGS: Cord terminates at the T12-L1 level. There is disc desiccation L1-2, L2-3. No focal disc herniations are evident. Significant disc bulging present. No spinal canal stenosis or neural foraminal stenosis is present. No abnormal enhancement i s evident. IMPRESSION: 1. Disc desiccation L2-3 L3-4. This is slightly progressive from the comparison.
== END | disposition home or self-care (01) ==
LOC: RADMRIMAIN 10:51
PROVIDERS: ATTEND Physician Assistant
DX: M54.5 Low back pain (principal)
CPT/HCPCS: 72158

== ENCOUNTER 2019-09-19 16:49 | Emergency (ER) | payer OTHER ==
[2019-09-19 16:54] VITALS: BP 135/90; PULSE 96; RESP 16; TEMP 99.4
--- NOTE | 2019-09-19 17:47 | XR ---
EXAMINATION TYPE: XR knee complete RT DATE OF EXAM: 09/19/2019 COMPARISON: NONE HISTORY: Pain TECHNIQUE: 3 views FINDINGS: I see no fracture nor dislocation. Joint spaces are normal. There is no sign of knee joint effusion. IMPRESSION: Normal right knee exam.
--- NOTE | 2019-09-19 17:48 | XR ---
EXAMINATION TYPE: XR ankle complete RT DATE OF EXAM: 09/19/2019 COMPARISON: NONE HISTORY: Pain after falling TECHNIQUE: 3 views FINDINGS: Ankle mortise is anatomic. I see no fracture nor dislocation. Joint spaces are normal. IMPRESSION: Negative right ankle exam.
--- NOTE | 2019-09-19 18:07 | ED ---
Lower Extremity Injury HPI - General Chief Complaint: Extremity Injury, Lower Stated Complaint: right leg injury at work [employer] Time Seen by Provider: 09/19/19 16:59 Source: patient Mode of arrival: ambulatory Limitations: no limitations - History of Present Illness Initial Comments: 39-year-old female presenting for right knee right ankle pain. Patient states that she was walking her foot was stuck between 2 pieces a cement and she fell forward she twisted her right ankle. Patient admitted to right ankle pain slight right knee pain. Patient denies dislocation. Patient denies any numbness tingling loss sensation coolness or pallor of the extremity. Patient denies any bruising. Patient stated she feels like her ankle slightly swollen. Remaining review of systems negative patient denies any injury to head neck or back. Patient denies any other complaints including denial of any upper extremity injuries. - Related Data Home Medications Medication Instructions Recorded Confirmed HYDROcodone/APAP 5-325MG [[place] 1 tab PO BID PRN 10/06/16 11/15/16 5-325] Ibuprofen [Motrin] 800 mg PO Q8H PRN 10/06/16 11/15/16 buPROPion [Wellbutrin] 75 mg PO BID 11/15/16 11/15/16 Previous Rx's Medication Instructions Recorded Benzonatate [Tessalon Perles] 100 mg PO TID #20 cap 11/15/16 Pseudoephedrine HCl [Sudafed 240 mg PO DAILY #10 tab.er.24h 11/15/16 24-Hour] predniSONE 50 mg PO DAILY #5 tab 11/15/16 Ondansetron [Zofran ODT] 4 mg PO Q8HR PRN #10 tab 01/15/18 Allergies Allergy/AdvReac Type Severity Reaction Status Date / Time cortisone Allergy Itching Verified 09/19/19 16:54 Review of Systems ROS Statement: Those systems with pertinent positive or pertinent negative responses have been documented in the HPI. ROS Other: All systems not noted in ROS Statement are negative. Past Medical History Past Medical History: GERD/Reflux Additional Past Medical History / Comment(s): Chronic low back pain, History of Any Multi-Drug Resistant Organisms: None Reported Past Surgical History: Section Additional Past Surgical History / Comment(s): ORAL Additional Past Anesthesia/Blood Transfusion Reaction / Comment(s): Pt has never had general anesthesia. Past Psychological History: Anxiety, Bipolar, Depression Smoking Status: Former smoker Past Alcohol Use History: Occasional Past Drug Use History: None Reported - Past Family History Mother Family Medical History: Thyroid Disorder Additional Family Medical History / Comment(s): Mother has thyroid dx. Father History Unknown: Yes General Exam - General Exam Comments Initial Comments: General: The patient is awake and alert, in no distress, and does not appear acutely ill. Eye: +3 mm pupils are equal, round and reactive to light, extra-ocular movements are intact. No nystagmus. There is normal conjunctiva bilaterally. No signs of icterus. No raccoon no luz sign, no scalp hematomas. Cardiovascular: There is a regular rate and rhythm. No murmur, rub or gallop is appreciated. Respiratory: Lungs are clear to auscultation, respirations are non-labored, breath sounds are equal. No wheezes, stridor, rales, or rhonchi. Gastrointestinal: Soft, non-distended, non-tender abdomen without masses or organomegaly noted. There is no rebound or guarding present. Musculoskeletal: Upon flexion of the knees and ankles bilaterally there is no significant abnormalities. mild soft tissue swelling is noted at the lateral malleolus of the right ankle. Patient able to fully range the knee is not ankles bilaterally with mild discomfort of the right knee right ankle. Strength 5/5. Sensation intact proximal and distal to injurt site. DP pulses equal bilaterally 2+. Compartment are soft and compressible. Neurological: A&O x 3. CN II-XII intact grossly, There are no obvious motor or sensory deficits. Coordination appears grossly intact. Speech is normal. Skin: Skin is warm and dry and no rashes or lesions are noted. Psychiatric: Cooperative, appropriate mood & affect, normal judgment. Limitations: no limitations Course Vital Signs 09/19/19 16:50 Temperature 99.4 F Pulse Rate 96 Respiratory 16 Rate Blood Pressure 135/90 O2 Sat by Pulse 95 Oximetry Medical Decision Making - Medical Decision Making 29-year-old female presented for fall right knee right right ankle injury. No obvious abnormalities aside from slight soft tissue swelling. X-rays negative for osseous presents to the knee or ankle. Concern for possible ankle sprain patient is placed in a splint. Rest instruction was discussed patient verbalized understanding patient is neurovascularly intact and able to ambulate she requested clearance back to work at this time given no osseous process I feel patient is able to weight-bear as tolerated however I recommended the patient rest ankle and if pain increases to f/u with orthopedic surgery otherwise may f/u with PCP in 1-2 days. Disposition Clinical Impression: Fall, Right ankle sprain, Right knee pain, Right ankle pain Disposition: HOME SELF-CARE Condition: Good Instructions (If sedation given, give patient instructions): Ankle Sprain (ED), Knee Pain (ED) Additional Instructions: Please use medication as discussed. Please follow-up with family doctor in the next 2 days.Please return to emergency room if the symptoms increase or worsen or for any other concerns. Is patient prescribed a controlled substance at d/c from ED?: No Referrals: Pineda Callahan MD [Primary Care Provider] - 1-2 days Time of Disposition: 18:06
== END 2019-09-19 18:24 | disposition home or self-care (01) ==
LOC: EC 16:49
DX: S93.401A Sprain of unspecified ligament of right ankle, initial encounter (principal); M25.561 Pain in right knee; G89.29 Other chronic pain; M54.9 Dorsalgia, unspecified; F41.9 Anxiety disorder, unspecified; F31.9 Bipolar disorder, unspecified; Z79.899 Other long term (current) drug therapy; Z87.891 Personal history of nicotine dependence; Z88.8 Allergy status to other drugs, medicaments and biological substances; W18.39XA Other fall on same level, initial encounter; Y93.01 Activity, walking, marching and hiking; Y92.69 Other specified industrial and construction area as the place of occurrence of the external cause; Y99.0 Civilian activity done for income or pay
CPT/HCPCS: 73562; 73610; 99283; 29515; L4350

== ENCOUNTER 2022-10-31 16:10 | Emergency (ER) | payer OTHER ==
--- NOTE | 2022-10-31 16:42 | ED ---
Fall HPI - General Chief Complaint: Fall Stated Complaint: Fall at work Time Seen by Provider: 10/31/22 16:20 Source: patient Mode of arrival: ambulatory - History of Present Illness Initial Comments: Patient is a 32-year-old female presenting for evaluation post fall at work today. Patient states that she was pushing a cart when it hit a crack in the sidewalk which caused her to fall over onto the cart. She is complaining mainly of left sided lower leg and ankle pain. She denies any head injury, loss of consciousness, use of blood thinners. No headache, vision or hearing changes, numbness, tingling, dizziness, vomiting or chest pain, difficulty breathing, neck pain. - Related Data Home Medications Medication Instructions Recorded Confirmed HYDROcodone/APAP 5-325MG [[place] 1 tab PO BID PRN 10/06/16 11/15/16 5-325] Ibuprofen [Motrin] 800 mg PO Q8H PRN 10/06/16 11/15/16 buPROPion [Wellbutrin] 75 mg PO BID 11/15/16 11/15/16 Previous Rx's Medication Instructions Recorded Benzonatate [Tessalon Perles] 100 mg PO TID #20 cap 11/15/16 Pseudoephedrine HCl [Sudafed 240 mg PO DAILY #10 tab.er.24h 11/15/16 24-Hour] predniSONE 50 mg PO DAILY #5 tab 11/15/16 Ondansetron [Zofran ODT] 4 mg PO Q8HR PRN #10 tab 01/15/18 Allergies Allergy/AdvReac Type Severity Reaction Status Date / Time cortisone Allergy Itching Verified 10/31/22 16:17 Review of Systems ROS Statement: Those systems with pertinent positive or pertinent negative responses have been documented in the HPI. ROS Other: All systems not noted in ROS Statement are negative. Past Medical History Past Medical History: GERD/Reflux Additional Past Medical History / Comment(s): Chronic low back pain, migraines History of Any Multi-Drug Resistant Organisms: None Reported Past Surgical History: Section Additional Past Surgical History / Comment(s): ORAL Additional Past Anesthesia/Blood Transfusion Reaction / Comment(s): Pt has never had general anesthesia. Past Psychological History: Anxiety, Bipolar, Depression Smoking Status: Never smoker Past Alcohol Use History: Occasional Past Drug Use History: None Reported - Past Family History Mother Family Medical History: Thyroid Disorder Additional Family Medical History / Comment(s): Mother has thyroid dx. Father History Unknown: Yes General Exam Limitations: no limitations General appearance: alert, in no apparent distress Head exam: Present: atraumatic, normocephalic, normal inspection Eye exam: Present: normal appearance, EOMI. Absent: periorbital swelling, periorbital tenderness Neck exam: Present: normal inspection, full ROM. Absent: tenderness Respiratory exam: Present: normal lung sounds bilaterally. Absent: respiratory distress, wheezes, rales, rhonchi, stridor Cardiovascular Exam: Present: regular rate, normal rhythm, normal heart sounds. Absent: systolic murmur, diastolic murmur, rubs, gallop, clicks Left Knee exam: Present: normal inspection. Absent: tenderness, swelling Lower Leg exam: Present: normal inspection, tenderness. Absent: swelling Ankle exam: Present: normal inspection, tenderness. Absent: swelling Foot/Toe exam: Present: normal inspection, tenderness. Absent: swelling Neurological exam: Present: alert, oriented X3, CN II-XII intact Psychiatric exam: Present: normal affect, normal mood Skin exam: Present: warm, dry, intact, normal color. Absent: rash Course Vital Signs 10/31/22 16:11 Temperature 98.4 F Pulse Rate 92 Respiratory 20 Rate Blood Pressure 144/96 O2 Sat by Pulse 96 Oximetry Medical Decision Making - Medical Decision Making Was pt. sent in by a medical professional or institution (Dr. PA, BOARDING KENNEL OR CATTERY OPERATOR, urgent care, hospital, or skilled nursing...) When possible be specific @ -No Did you speak to anyone other than the patient for history (EMS, parent, family, police, friend...)? What history was obtained from this source @ -No Did you review nursing and triage notes (agree or disagree)? Why? @ -I reviewed and agree with nursing and triage notes Were old charts reviewed (outside hosp., previous admission, EMS record, old EKG, old radiological studies, urgent care reports/EKG's, skilled nursing records)? Report findings @ -No old charts were reviewed Differential Diagnosis (chest pain, altered mental status, abdominal pain women, abdominal pain men, vaginal bleeding, weakness, fever, dyspnea, syncope, headache, dizziness, GI bleed, back pain, seizure, CVA, palpatations, mental health, musculoskeletal)? @ -Differential Musculoskeletal Muscular strain, contusion, ligament sprain, fracture, arthritis, septic arthritis, bursitis, cellulitis, muscle spasm, nerve compression, DVT, arterial occlusion, herpes zoster, electrolyte abnormality, tumor.... This is not meant to be in all inclusive list EKG interpreted by me (3pts min.). @ -As above X-rays interpreted by me (1pt min.). @ -X-rays of the knee, ankle, and tib-fib showed no fracture or dislocation CT interpreted by me (1pt min.). @ -None done U/S interpreted by me (1pt. min.). @ -None done What testing was considered but not performed or refused? (CT, X-rays, U/S, labs)? Why? @ -None What meds were considered but not given or refused? Why? @ -None Did you discuss the management of the patient with other professionals (professionals i.e. , PA, BOARDING KENNEL OR CATTERY OPERATOR, lab, RT, psych nurse, child protective services social worker, silverware cleaner, teacher, booking officer, pillowcase sewer)? Give summary @ -No Was smoking cessation discussed for >3mins.? @ -No Was critical care preformed (if so, how long)? @ -No Were there social determinants of health that impacted care today? How? (Homelessness, low income, unemployed, alcoholism, drug addiction, transportation, low edu. Level, literacy, decrease access to med. care, residential, rehab)? @ -No Was there de-escalation of care discussed even if they declined (Discuss DNR or withdrawal of care, Hospice)? DNR status @ -No What co-morbidities impacted this encounter? (DM, HTN, Smoking, COPD, CAD, Cancer, CVA, ARF, Chemo, Hep., AIDS, mental health diagnosis, sleep apnea, morbid obesity)? @ -None Was patient admitted / discharged? Hospital course, mention meds given and route, prescriptions, significant lab abnormalities, going to OR and other pertinent info. @ -Patient is a 33-year-old female presenting for evaluation post fall at work. She is complaining of pain to the left lower leg. On physical examination she has full range of motion and neurovascularly intact. X-rays showed no evidence of fracture or dislocation. Patient is educated on findings on supportive management at home. Follow-up with PCP. Report back to ER with any new or worsening symptoms. Discussed return parameters and answered all questions. Patient conveyed verbal understanding and agreed to the plan. I discussed this case in detail with my attending Dr. Felton Undiagnosed new problem with uncertain prognosis? @ -No Drug Therapy requiring intensive monitoring for toxicity (Heparin, Nitro, Insulin, Cardizem)? @ -No Were any procedures done? @ -No Diagnosis/symptom? @ -Leg strain Acute, or Chronic, or Acute on Chronic? @ -Acute Uncomplicated (without systemic symptoms) or Complicated (systemic symptoms)? @ -Uncomplicated Side effects of treatment? @ -No Exacerbation, Progression, or Severe Exacerbation? @ -No Poses a threat to life or bodily function? How? (Chest pain, [place], [place], pneumonia, PE, COPD, DKA, ARF, appy, cholecystitis, CVA, Diverticulitis, Homicidal, Suicidal, threat to staff... and all critical care pts) @ -No Disposition Clinical Impression: Leg strain Disposition: HOME SELF-CARE Condition: Good Instructions (If sedation given, give patient instructions): Leg Pain (ED) Additional Instructions: Follow-up with PCP. Report back to ER with any new or worsening symptoms. Take Motrin and Tylenol as needed for pain control. Is patient prescribed a controlled substance at d/c from ED?: No Referrals: Pineda Callahan MD [Primary Care Provider] - 1-2 days Time of Disposition: 17:53
--- NOTE | 2022-10-31 17:27 | XR ---
EXAMINATION TYPE: XR knee complete LT DATE OF EXAM: 10/31/2022 5:17 PM INDICATION: Patient age:Female; 32 years old; Reason for study: fall; COMPARISON: None. TECHNIQUE: The Left knee(s) was examined in Frontal, lateral and oblique projections. FINDINGS: No evidence of any acute osseous pathology, soft tissue swelling, or joint effusion is no deanna. IMPRESSION: No acute osseous pathology.
--- NOTE | 2022-10-31 17:27 | XR ---
EXAMINATION TYPE: XR tibia fibula LT DATE OF EXAM: 10/31/2022 5:17 PM INDICATION: Patient age:Female; 32 years old; Reason for study: fall; COMPARISON: None TECHNIQUE: The left tibia/fibula was examined in AP and lateral projections. FINDINGS: No evidence of any acute osseous pathology, joint dislocation, or soft tissue swelling is n oted. IMPRESSION: No evidence of acute fracture.
--- NOTE | 2022-10-31 17:27 | XR ---
EXAMINATION TYPE: XR ankle complete LT DATE OF EXAM: 10/31/2022 5:17 PM INDICATION: Patient age:Female; 32 years old; Reason for study: fall; COMPARISON: None TECHNIQUE: The left ankle is imaged in frontal, lateral and oblique projections. FINDINGS: There is no evidence of acute osseous pathology. The joint spaces are well-preserved without evidenc e of subluxation or dislocation. Kager's fat pad is intact. Soft tissues are within normal limits. No radiopaque foreign bodies are identified. IMPRESSION: 1. No evidence of acute fracture.
[2022-10-31 18:19] VITALS: BP 126/82; PULSE 76; RESP 14; TEMP 97.4
== END 2022-10-31 18:19 | disposition home or self-care (01) ==
LOC: EC 16:10
DX: S86.912A Strain of unspecified muscle(s) and tendon(s) at lower leg level, left leg, initial encounter (principal); F31.9 Bipolar disorder, unspecified; Z79.899 Other long term (current) drug therapy; Z88.8 Allergy status to other drugs, medicaments and biological substances; W18.30XA Fall on same level, unspecified, initial encounter; Y99.0 Civilian activity done for income or pay
CPT/HCPCS: 99284

== ENCOUNTER 2024-04-30 21:10 | Emergency (ER) | payer OTHER ==
[2024-04-30 21:45] LABS: Appearance,Urine Clear (Clear); Bilirubin,Urine Negative (Negative); Blood,Urine Negative (Negative); Color,Urine Colorless; Glucose,Urine (UA) Negative (Negative); Ketones,Urine Negative (Negative); Leukocyte Esterase,Urine Negative (Negative); Nitrite,Urine Negative (Negative); PH, Urine 6.5 (5.0-8.0); Protein,Urine Negative (Negative); Specific Gravity,Urine 1.005 (1.001-1.035); Urobilinogen,Urine <2.0 mg/dL (<2.0)
--- NOTE | 2024-04-30 22:23 | ED ---
Weakness HPI - General Chief complaint: Nausea/Vomiting/Diarrhea Stated complaint: Dizziness,nausea Time Seen by Provider: 04/30/24 21:31 Source: patient, RN notes reviewed, old records reviewed Mode of arrival: wheelchair Limitations: no limitations - History of Present Illness Initial comments: This is a 33-year-old female to the ER for evaluation. Patient presents to the emergency department for evaluation of weakness also complaining of blurry v ision and seeing spots in her vision all symptoms have improved and she is resting comfortably here in the ER with no complaints patient has no medical history takes no medications MD Complaint: generalized weakness -: days(s) Location: generalized Severity: severe Severity scale (1-10): 9 Quality: other (Blurry vision and vision changes which are resolved) Consistency: intermittent, now resolved Improves with: none Worsens with: none Context: other (0) Associated Symptoms: denies other symptoms - Related Data Home Medications Medication Instructions Recorded Confirmed HYDROcodone/APAP 5-325MG [[place] 1 tab PO BID PRN 10/06/16 11/15/16 5-325] Ibuprofen [Motrin] 800 mg PO Q8H PRN 10/06/16 11/15/16 buPROPion [Wellbutrin] 75 mg PO BID 11/15/16 11/15/16 Previous Rx's Medication Instructions Recorded Benzonatate [Tessalon Perles] 100 mg PO TID #20 cap 11/15/16 Pseudoephedrine HCl [Sudafed 240 mg PO DAILY #10 tab.er.24h 11/15/16 24-Hour] predniSONE 50 mg PO DAILY #5 tab 11/15/16 Ondansetron [Zofran ODT] 4 mg PO Q8HR PRN #10 tab 01/15/18 Allergies Allergy/AdvReac Type Severity Reaction Status Date / Time cortisone Allergy Itching Verified 04/30/24 21:14 Review of Systems ROS Statement: Those systems with pertinent positive or pertinent negative responses have been documented in the HPI. ROS Other: All systems not noted in ROS Statement are negative. Past Medical History Past Medical History: GERD/Reflux Additional Past Medical History / Comment(s): Chronic low back pain, migraines History of Any Multi-Drug Resistant Organisms: None Reported Past Surgical History: Section Additional Past Surgical History / Comment(s): ORAL Additional Past Anesthesia/Blood Transfusion Reaction / Comment(s): Pt has never had general anesthesia. Past Psychological History: Anxiety, Bipolar, Depression Smoking Status: Never smoker Past Alcohol Use History: Occasional Past Drug Use History: None Reported - Past Family History Mother Family Medical History: Thyroid Disorder Additional Family Medical History / Comment(s): Mother has thyroid dx. Father History Unknown: Yes General Exam Limitations: no limitations General appearance: alert, in no apparent distress, anxious Head exam: Present: atraumatic, normocephalic, normal inspection Eye exam: Present: normal appearance, PERRL, EOMI. Absent: scleral icterus, conjunctival injection, periorbital swelling ENT exam: Present: normal exam, mucous membranes moist Neck exam: Present: normal inspection. Absent: tenderness, meningismus, lymphadenopathy Respiratory exam: Present: normal lung sounds bilaterally. Absent: respiratory distress, wheezes, rales, rhonchi, stridor Cardiovascular Exam: Present: normal rhythm, tachycardia, normal heart sounds. Absent: systolic murmur, diastolic murmur, rubs, gallop, clicks GI/Abdominal exam: Present: soft, normal bowel sounds. Absent: distended, tenderness, guarding, rebound, rigid Extremities exam: Present: normal inspection, full ROM, normal capillary refill. Absent: tenderness, pedal edema, joint swelling, calf tenderness Back exam: Present: normal inspection Neurological exam: Present: alert, oriented X3, CN II-XII intact Psychiatric exam: Present: normal affect, normal mood Skin exam: Present: warm, dry, intact, normal color. Absent: rash Course Vital Signs 04/30/24 05/01/24 05/01/24 21:12 00:13 01:03 Temperature 98.2 F 98.1 F Pulse Rate 107 H 86 86 Respiratory 20 18 19 Rate Blood Pressure 150/99 138/92 137/86 O2 Sat by Pulse 99 96 96 Oximetry - Reevaluation(s) Reevaluation #1: 04/30/24 23:06 Records reviewed Reevaluation #2: 04/30/24 23:21 Patient symptoms remain improved Reevaluation #3: 04/30/24 23:21 Informed of results and questions answered Reevaluation #4: Was pt. sent in by a medical professional or institution (, PA, DIRECTOR CLINICAL INFORMATION SERVICES, urgent care, hospital, or retirement...) When possible be specific @ -no Did you speak to anyone other than the patient for history (EMS, parent, family, police, friend...)? What history was obtained from this source @ -no Did you review nursing and triage notes (agree or disagree)? Why? @ -agree Are old charts reviewed (outside hosp., previous admission, EMS record, old EKG, old radiological studies, urgent care reports/EKG's, retirement records)? Report findings @ -yes Differential Diagnosis (chest pain, altered mental status, abdominal pain women, abdominal pain men, vaginal bleeding, weakness, fever, dyspnea, syncope, headache, dizziness, GI bleed, back pain, seizure, CVA, palpatations, mental health, musculoskeletal)? @ -prior EKG interpreted by me (3pts min.). @ -yes X-rays interpreted by me (1pt min.). @ -no CT interpreted by me (1pt min.). @ -yes negative for acute disease U/S interpreted by me (1pt. min.). @ -no What testing was considered but not performed or refused? (CT, X-rays, U/S, labs)? Why? @ -none What meds were considered but not given or refused? Why? @ -none Did you discuss the management of the patient with other professionals (professionals i.e. , PA, DIRECTOR CLINICAL INFORMATION SERVICES, lab, RT, psych nurse, social research assistant, school bus technician, teacher, intelligence officer basic, lining caser)? Give summary @ -no Was smoking cessation discussed for >3mins.? @ -no Was critical care preformed (if so, how long)? @ -no Were there social determinants of health that impacted care today? How? (Homelessness, low income, unemployed, alcoholism, drug addiction, transportation, low edu. Level, literacy, decrease access to med. care, senior living, rehab)? @ -none Was there de-escalation of care discussed even if they declined (Discuss DNR or withdrawal of care, Hospice)? DNR status @ -no What co-morbidities impacted this encounter? (DM, HTN, Smoking, COPD, CAD, Cancer, CVA, ARF, Chemo, Hep., AIDS, mental health diagnosis, sleep apnea, morbid obesity)? @ -none Was patient admitted / discharged? Hospital course, mention meds given and route, prescriptions, significant lab abnormalities, going to OR and other rust ne info. @ - 33 female to the ER for evaluation of an episode of seeing spots but symptoms resolved. Patient feels well here in the ER and can be discharged home, dizziness also resolved Discharge Undiagnosed new problem with uncertain prognosis? @ -no Drug Therapy requiring intensive monitoring for toxicity (Heparin, Nitro, Insulin, Cardizem)? @ -no Were any procedures done? @ -no Diagnosis/symptom? @ -Weakness dizziness blurry vision Acute, or Chronic, or Acute on Chronic? @ -Acute Uncomplicated (without systemic symptoms) or Complicated (systemic symptoms)? @ -Complicated Side effects of treatment? @ -no Exacerbation, Progression, or Severe Exacerbation? @ -exacerbation Poses a threat to life or bodily function? How? (Chest pain, [place], [place], pneumonia, PE, COPD, DKA, ARF, appy, cholecystitis, CVA, Diverticulitis, Homicidal, Suicidal, threat to staff... and all critical care pts) @ -no Reevaluation #5: Differential Weakness: Hypoglycemia, shock, sepsis, hyponatremia, anemia, infection, [place], ETOH, adverse medicine reaction, overdose, stroke, this is not meant to be an all-inclusive list. EKG Findings - EKG Comments: EKG Findings:: EG is sinus 91 ID 173 QRS 94 QTc 392 - EKG Results: EKG: interpreted by PADMINI Medical Decision Making - Medical Decision Making 33 female to the ER for evaluation of an episode of seeing spots but symptoms resolved. Patient feels well here in the ER and can be discharged home, dizziness also resolved - Lab Data Result diagrams: 04/30/24 23:01 04/30/24 23:01 Lab Results 04/30/24 04/30/24 04/30/24 Range/Units 21:22 21:22 23:01 WBC 9.8 (3.8-10.6) k/uL RBC 4.88 (3.80-5.40) m/uL Hgb 12.7 (11.4-16.0) gm/dL Hct 38.2 (34.0-46.0) % MCV 78.3 L (80.0-100.0) fL MCH 26.0 (25.0-35.0) pg MCHC 33.2 (31.0-37.0) g/dL RDW 14.8 (11.5-15.5) % Plt Count 355 (150-450) k/uL MPV 7.9 Neutrophils % 70 % Lymphocytes % 23 % Monocytes % 4 % Eosinophils % 1 % Basophils % 0 % Neutrophils # 6.9 (1.3-7.7) k/uL Lymphocytes # 2.3 (1.0-4.8) k/uL Monocytes # 0.4 (0-1.0) k/uL Eosinophils # 0.1 (0-0.7) k/uL Basophils # 0.0 (0-0.2) k/uL PT (10.0-12.5) sec INR (<1.2) APTT (22.0-30.0) sec Sodium (137-145) mmol/L Potassium (3.5-5.1) mmol/L Chloride (98-107) mmol/L Carbon Dioxide (22-30) mmol/L Anion Gap mmol/L BUN (7-17) mg/dL Creatinine (0.52-1.04) mg/dL Est GFR (CKD-EPI)AfAm (>60 ml/min/1.73 sqM) Est GFR (CKD-EPI)NonAf (>60 ml/min/1.73 sqM) Glucose (74-99) mg/dL Lactic Ac Sepsis Rflx Plasma Lactic Acid [place] (0.7-2.0) mmol/L Calcium (8.4-10.2) mg/dL Phosphorus (2.5-4.5) mg/dL Magnesium (1.6-2.3) mg/dL Total Bilirubin (0.2-1.3) mg/dL AST (14-36) U/L ALT (4-34) U/L Alkaline Phosphatase (38-126) U/L Troponin I (0.000-0.034) ng/mL NT-Pro-B Natriuret Pep pg/mL Total Protein (6.3-8.2) g/dL Albumin (3.5-5.0) g/dL Urine Color Colorless Urine Appearance Clear (Clear) Urine pH 6.5 (5.0-8.0) Ur Specific [place] 1.005 (1.001-1.035) Urine Protein Negative (Negative) Urine Glucose (UA) Negative (Negative) Urine Ketones Negative (Negative) Urine Blood Negative (Negative) Urine Nitrite Negative (Negative) Urine Bilirubin Negative (Negative) Urine Urobilinogen <2.0 (<2.0) mg/dL Ur Leukocyte Esterase Negative (Negative) Urine HCG, Qual Not Detected (Not Detectd) 04/30/24 04/30/24 04/30/24 Range/Units 23:01 23:01 23:01 WBC (3.8-10.6) k/uL RBC (3.80-5.40) m/uL Hgb (11.4-16.0) gm/dL Hct (34.0-46.0) % MCV (80.0-100.0) fL MCH (25.0-35.0) pg MCHC (31.0-37.0) g/dL RDW (11.5-15.5) % Plt Count (150-450) k/uL MPV Neutrophils % % Lymphocytes % % Monocytes % % Eosinophils % % Basophils % % Neutrophils # (1.3-7.7) k/uL Lymphocytes # (1.0-4.8) k/uL Monocytes # (0-1.0) k/uL Eosinophils # (0-0.7) k/uL Basophils # (0-0.2) k/uL PT 10.0 (10.0-12.5) sec INR 0.9 (<1.2) APTT 28.7 (22.0-30.0) sec Sodium 142 (137-145) mmol/L Potassium 3.9 (3.5-5.1) mmol/L Chloride 108 H (98-107) mmol/L Carbon Dioxide 26 (22-30) mmol/L Anion Gap 8 mmol/L BUN 9 (7-17) mg/dL Creatinine 0.64 (0.52-1.04) mg/dL Est GFR (CKD-EPI)AfAm >90 (>60 ml/min/1.73 sqM) Est GFR (CKD-EPI)NonAf >90 (>60 ml/min/1.73 sqM) Glucose 104 H (74-99) mg/dL Lactic Ac Sepsis Rflx Plasma Lactic Acid [place] 2.1 H* (0.7-2.0) mmol/L Calcium 10.1 (8.4-10.2) mg/dL Phosphorus 3.1 (2.5-4.5) mg/dL Magnesium 2.1 (1.6-2.3) mg/dL Total Bilirubin 0.4 (0.2-1.3) mg/dL AST 20 (14-36) U/L ALT 16 (4-34) U/L Alkaline Phosphatase 96 (38-126) U/L Troponin I (0.000-0.034) ng/mL NT-Pro-B Natriuret Pep <20 pg/mL Total Protein 7.4 (6.3-8.2) g/dL Albumin 4.5 (3.5-5.0) g/dL Urine Color Urine Appearance (Clear) Urine pH (5.0-8.0) Ur Specific [place] (1.001-1.035) Urine Protein (Negative) Urine Glucose (UA) (Negative) Urine Ketones (Negative) Urine Blood (Negative) Urine Nitrite (Negative) Urine Bilirubin (Negative) Urine Urobilinogen (<2.0) mg/dL Ur Leukocyte Esterase (Negative) Urine HCG, Qual (Not Detectd) 04/30/24 05/01/24 Range/Units 23:01 00:06 WBC (3.8-10.6) k/uL RBC (3.80-5.40) m/uL Hgb (11.4-16.0) gm/dL Hct (34.0-46.0) % MCV (80.0-100.0) fL MCH (25.0-35.0) pg MCHC (31.0-37.0) g/dL RDW (11.5-15.5) % Plt Count (150-450) k/uL MPV Neutrophils % % Lymphocytes % % Monocytes % % Eosinophils % % Basophils % % Neutrophils # (1.3-7.7) k/uL Lymphocytes # (1.0-4.8) k/uL Monocytes # (0-1.0) k/uL Eosinophils # (0-0.7) k/uL Basophils # (0-0.2) k/uL PT (10.0-12.5) sec INR (<1.2) APTT (22.0-30.0) sec Sodium (137-145) mmol/L Potassium (3.5-5.1) mmol/L Chloride (98-107) mmol/L Carbon Dioxide (22-30) mmol/L Anion Gap mmol/L BUN (7-17) mg/dL Creatinine (0.52-1.04) mg/dL Est GFR (CKD-EPI)AfAm (>60 ml/min/1.73 sqM) Est GFR (CKD-EPI)NonAf (>60 ml/min/1.73 sqM) Glucose (74-99) mg/dL Lactic Ac Sepsis Rflx Y Plasma Lactic Acid [place] (0.7-2.0) mmol/L Calcium (8.4-10.2) mg/dL Phosphorus (2.5-4.5) mg/dL Magnesium (1.6-2.3) mg/dL Total Bilirubin (0.2-1.3) mg/dL AST (14-36) U/L ALT (4-34) U/L Alkaline Phosphatase (38-126) U/L Troponin I <0.012 (0.000-0.034) ng/mL NT-Pro-B Natriuret Pep pg/mL Total Protein (6.3-8.2) g/dL Albumin (3.5-5.0) g/dL Urine Color Urine Appearance (Clear) Urine pH (5.0-8.0) Ur Specific [place] (1.001-1.035) Urine Protein (Negative) Urine Glucose (UA) (Negative) Urine Ketones (Negative) Urine Blood (Negative) Urine Nitrite (Negative) Urine Bilirubin (Negative) Urine Urobilinogen (<2.0) mg/dL Ur Leukocyte Esterase (Negative) Urine HCG, Qual (Not Detectd) - EKG Data -: EKG Interpreted by Me - Radiology Data Radiology results: report reviewed (CT brain is negative for acute disease), image reviewed Disposition Clinical Impression: Dizziness, Spots in front of the eye, Nausea Disposition: HOME SELF-CARE Condition: Good Instructions (If sedation given, give patient instructions): Acute Nausea and Vomiting (ED), Visual Floaters (ED) Is patient prescribed a controlled substance at d/c from ED?: No Referrals: Pineda Callahan MD [Primary Care Provider] - 1-2 days Yazan Bush MD [STAFF PHYSICIAN] - 1-2 days Time of Disposition: 23:55
[2024-04-30] MEDS: SODIUM CHLORIDE 0.9% 1,000 ML IV STA (23:04)
[2024-04-30 23:38] LABS: Basophils % (A) 0 %; Eosinophils # (A) 0.1 k/uL (0-0.7); Eosinophils % (A) 1 %; HCT 38.2 % (34.0-46.0); HGB 12.7 gm/dL (11.4-16.0); Lymphocytes # (A) 2.3 k/uL (1.0-4.8); Lymphocytes % (A) 23 %; MCHC 33.2 g/dL (31.0-37.0); MCV 78.3 fL (80.0-100.0); Mean Platelet Volume 7.9; Monocytes # (A) 0.4 k/uL (0-1.0); Monocytes % (A) 4 %; Neutrophils # (A) 6.9 k/uL (1.3-7.7); Neutrophils % (A) 70 %; Platelet Count 355 k/uL (150-450); RBC 4.88 m/uL (3.80-5.40); RDW 14.8 % (11.5-15.5); WBC 9.8 k/uL (3.8-10.6)
--- NOTE | 2024-04-30 23:48 | CT ---
EXAM: CT Head Without Intravenous Contrast CLINICAL HISTORY: ITS.REASON CT Reason: weakness TECHNIQUE: Axial computed tomography images of the head/brain without intravenous contrast. CTDI is 49.2 mGy and DLP is 1095.4 mGy-cm. This CT exam was performed using one or more of the following dose reduction techniques: automated exposure control, adjustment of the mA and/or kV according to patient size, and/or use of iterative reconstruction technique. COMPARISON: No relevant prior studies available. FINDINGS: No acute intracranial hemorrhage. No midline shift or mass effect. The territorial buck-white matter differentiation is maintained throughout. The ventricles and sulci are commensurate with age. The visualized orbits appear grossly unremarkable. The calvarium is intact. The visualized paranasal sinuses and mastoid air cells are grossly clear. IMPRESSION: No acute intracranial hemorrhage, midline shift, or mass effect.
[2024-04-30 23:57] LABS: INR 0.9 (<1.2); Partial Thromboplastin Time 28.7 sec (22.0-30.0)
[2024-05-01 00:04] LABS: ALT 16 U/L (4-34); AST 20 U/L (14-36); African American GFR (CKD) >90 (>60 ml/min/1.73 sqM); Albumin 4.5 g/dL (3.5-5.0); Alkaline Phosphatase 96 U/L (38-126); Anion Gap 8 mmol/L; Blood Urea Nitrogen 9 mg/dL (7-17); Calcium 10.1 mg/dL (8.4-10.2); Carbon Dioxide 26 mmol/L (22-30); Chloride 108 mmol/L (98-107); Glucose 104 mg/dL (74-99); Magnesium 2.1 mg/dL (1.6-2.3); Non-African American GFR(CKD) >90 (>60 ml/min/1.73 sqM); Phosphorus 3.1 mg/dL (2.5-4.5); Potassium 3.9 mmol/L (3.5-5.1); Sodium 142 mmol/L (137-145); Total Bilirubin 0.4 mg/dL (0.2-1.3); Total Protein 7.4 g/dL (6.3-8.2)
[2024-05-01] MEDS: ONDANSETRON 4 MG/2 ML VIAL IVP STA (00:12)
[2024-05-01 00:13] LABS: NT-Pro-B-Type Natriuretic Pept <20 pg/mL
[2024-05-01 00:15] VITALS: PULSE 86
[2024-05-01 01:07] VITALS: BP 137/86; RESP 19; TEMP 98.1
== END 2024-05-01 01:08 | disposition home or self-care (01) ==
LOC: EC 21:10
DX: R11.2 Nausea with vomiting, unspecified (principal); H53.8 Other visual disturbances; R53.1 Weakness; Z88.8 Allergy status to other drugs, medicaments and biological substances
CPT/HCPCS: 36415 ×2; 93005; 83880; 80053; 83605; 83735; 84100; 84484; 85025; 85610; 85730; 81003; 81025; 70450; 99284; 96374; 96361; J2405